=== PATIENT | female | born 1935 | race Asian ===

== ENCOUNTER 2018-11-30 05:34 | Emergency (ER) | payer OTHER ==
[~2018-11-30] VITALS: Ht 149.9 cm; Wt 48.2 kg
[~2018-11-30 05:34] MED LIST: AGGR20025 PO; ATOR20TA86 PO; CLON-570 PO; DILT240C11 PO; GLYB1TAB2 PO; SITA1TAB6 PO; VALS1TAB7 PO
[2018-11-30] MEDS ORDERED: SITA25 PO (05:58)
[2018-11-30] MEDS ORDERED: LOSA1TAB40 PO (05:58)
[2018-11-30] MEDS ORDERED: GLIP5 PO (05:58)
[2018-11-30] MEDS ORDERED: AMLO2.5T4 PO (05:58)
[2018-11-30] MEDS ORDERED: MEMA14CA5 PO (06:04)
[2018-11-30] MEDS ORDERED: RALO60 PO (06:04)
[2018-11-30] MEDS ORDERED: DONE10TA8 PO (06:04)
[2018-11-30] MEDS ORDERED: ROSU10 PO (06:04)
[2018-11-30] MEDS ORDERED: PIOG15TA6 PO (06:04)
[2018-11-30 06:43] LABS: BASOPHILS % (AUTO) 0.4 % (0.0-2.0); EOSINOPHILS % (AUTO) 0.8 % (1.0-6.0); HEMATOCRIT 29.8 % (36-46); HEMOGLOBIN 9.8 g/dL (12.0-16.0); LYMPHOCYTES # (AUTO) 1.9 K/uL (1.0-4.8); LYMPHOCYTES % (AUTO) 21.4 % (22.0-44.0); MEAN CORPUSCULAR HEMOGLOBIN 30.5 pg (26.0-34.0); MEAN CORPUSCULAR HGB CONC 33.1 G/dL (31.0-37.0); MEAN CORPUSCULAR VOLUME 92 fL (80-100); MONOCYTES # (AUTO) 0.7 K/uL (0.1-1.0); MONOCYTES % (AUTO) 7.9 % (2.0-9.0); NEUTROPHILS # (AUTO) 6.2 K/uL (1.8-7.7); NEUTROPHILS % (AUTO) 69.5 % (40.0-70.0); PLATELET COUNT (AUTO) 197 K/uL (150-450); RED BLOOD CELL COUNT(AUTO) 3.23 MIL/uL (4.00-5.20); RED CELL DISTRIBUTION WIDTH 14.5 % (11.5-14.5)
[2018-11-30 06:48] LABS: CALCIUM, TOTAL 8.8 mg/dL (8.8-10.5); CREATININE 1.67 mg/dL (0.60-1.30); POTASSIUM 4.5 mmol/L (3.5-5.1)
[2018-11-30 07:20] LABS: ALBUMIN 2.8 g/dL (3.4-5.0); BILIRUBIN,TOTAL 0.3 mg/dL (0.1-1.0); TOTAL PROTEIN, SERUM 6.3 g/dL (6.4-8.2)
[2018-11-30] MEDS ORDERED: SODIUM CHLORIDE 0.9% 500 ML IV ONE (07:45)
[2018-11-30 10:12] LABS: BILIRUBIN,URINE NEGATIVE (NEGATIVE); GLUCOSE, URINE (UA) NEGATIVE (NEGATIVE); KETONES,URINE NEGATIVE (NEGATIVE); LEUKOCYTE ESTERASE ,URINE TRACE (NEGATIVE); NITRATE,URINE NEGATIVE (NEGATIVE); OCCULT BLOOD,URINE NEGATIVE (NEGATIVE); PH,URINE 5.5 (5.0-8.0); PROTEIN,URINE NEGATIVE (NEGATIVE); UROBILINOGEN,URINE 0.2 mg/dL (<=1.0)
[2018-11-30 10:15] LABS: APPEARANCE,URINE CLEAR (CLEAR)
[2018-11-30 10:24] LABS: BACTERIA,URINE None Seen /HPF (None Seen); RBC,URINE None Seen /HPF (0-2); SQUAMOUS EPITHELIAL CELL,UR Moderate /LPF (None Seen); WBC,URINE 0-2 /HPF (0-5)
[2018-11-30 10:49] VITALS: BP 121/64
== END 2018-11-30 10:55 | disposition home or self-care (01) ==
LOC: EMS 05:34
DX: R55 Syncope and collapse (principal); E86.0 Dehydration; I10 Essential (primary) hypertension; E11.9 Type 2 diabetes mellitus without complications; E78.00 Pure hypercholesterolemia, unspecified; G30.9 Alzheimer's disease, unspecified
CPT/HCPCS: 36415; 71045; 80053; 81001; 82550; 84484; 85025; 93005; 96360; 99284; J7040

== ENCOUNTER 2020-09-20 16:34 | Emergency (ER) | payer OTHER ==
[~2020-09-20] VITALS: Ht 149.9 cm; Wt 59.1 kg
[~2020-09-20 16:34] MED LIST changes: +AMLO2.5T96 PO; -ATOR20TA86 PO; -CLON-570 PO; -DILT240C11 PO; +DONE10TA8 PO; +GLIP5 PO; -GLYB1TAB2 PO; +LOSA1TAB40 PO; +MEMA14CA5 PO; +PIOG15TA6 PO; +RALO60 PO; +ROSU10TA22 PO; -SITA1TAB6 PO; +SITA25 PO; -VALS1TAB7 PO
[2020-09-20] MEDS ORDERED: ASPI1CPM8 PO (17:24)
[2020-09-20] MEDS ORDERED: ACETAMINOPHEN 325 MG TABLET PO ONE (17:30)
[2020-09-20 17:38] LABS: BASOPHILS % (AUTO) 0.2 % (0.0-2.0); EOSINOPHILS % (AUTO) 0.1 % (1.0-6.0); HEMATOCRIT 35.3 % (36-46); HEMOGLOBIN 11.6 g/dL (12.0-16.0); LYMPHOCYTES # (AUTO) 0.7 K/uL (1.0-4.8); LYMPHOCYTES % (AUTO) 6.5 % (22.0-44.0); MEAN CORPUSCULAR HEMOGLOBIN 30.7 pg (26.0-34.0); MEAN CORPUSCULAR HGB CONC 32.8 G/dL (31.0-37.0); MEAN CORPUSCULAR VOLUME 94 fL (80-100); MONOCYTES # (AUTO) 0.7 K/uL (0.1-1.0); MONOCYTES % (AUTO) 6.3 % (2.0-9.0); NEUTROPHILS # (AUTO) 9.5 K/uL (1.8-7.7); PLATELET COUNT (AUTO) 191 K/uL (150-450); RED BLOOD CELL COUNT(AUTO) 3.77 MIL/uL (4.00-5.20); RED CELL DISTRIBUTION WIDTH 15.4 % (11.5-14.5)
[2020-09-20 17:41] LABS: NEUTROPHILS % (AUTO) 86.9 % (40.0-70.0)
[2020-09-20 17:49] LABS: CREATININE 1.83 mg/dL (0.60-1.30)
[2020-09-20 17:55] LABS: ALBUMIN 3.3 g/dL (3.4-5.0); BILIRUBIN,TOTAL 0.2 mg/dL (0.1-1.0)
[2020-09-20] MEDS ORDERED: IBUPROFEN 400 MG TABLET PO ONE (21:15)
[2020-09-20 22:48] LABS: COVID AG,FIA SOURCE NASOPHARYNGEAL
[2020-09-21 00:59] VITALS: BP 161/72
== END 2020-09-21 01:35 | disposition short-term general hospital (02) ==
LOC: EMS 16:36
DX: S32.445A Nondisplaced fracture of posterior column [ilioischial] of left acetabulum, initial encounter for closed fracture (principal); S32.592A Other specified fracture of left pubis, initial encounter for closed fracture; E11.9 Type 2 diabetes mellitus without complications; E78.00 Pure hypercholesterolemia, unspecified; I10 Essential (primary) hypertension; Z20.828 Contact with and (suspected) exposure to other viral communicable diseases; W01.0XXA Fall on same level from slipping, tripping and stumbling without subsequent striking against object, initial encounter; Y93.01 Activity, walking, marching and hiking; Y92.89 Other specified places as the place of occurrence of the external cause; Y99.8 Other external cause status
CPT/HCPCS: 73503; 87426